=== PATIENT | male | born 1985 | race Caucasian/White ===

== ENCOUNTER 2016-12-04 10:50 | Day surgery (SDC) | payer OTHER ==
[2016-12-04] MEDS ORDERED: LACTATED RINGERS 1,000 ML IV ONE (11:07)
[2016-12-04] MEDS ORDERED: fentaNYL 250 MCG/5 ML VIAL IVP ONE (12:59)
[2016-12-04] MEDS ORDERED: MIDAZOLAM 2 MG/2 ML VIAL IVP ONE (12:59)
== END 2016-12-04 10:51 | disposition home or self-care (01) ==
PROC: 0DB38ZX Excision of Lower Esophagus, Via Natural or Artificial Opening Endoscopic, Diagnostic (ICD-10-PCS; principal; 2016-12-04 12:00)
DX: R12 Heartburn (principal); K21.0 Gastro-esophageal reflux disease with esophagitis; K44.9 Diaphragmatic hernia without obstruction or gangrene; K31.9 Disease of stomach and duodenum, unspecified
CPT/HCPCS: 43239; J3010; J7120